=== PATIENT | female | born 2000 | race Hispanic/Latino ===

== ENCOUNTER 2018-09-28 13:38 | Emergency (ER) | payer OTHER ==
[2018-09-28 14:10] VITALS: RESP 18
[2018-09-28] MEDS ORDERED: Sodium Chloride 0.9% 1,000 ML IV STA (15:26)
--- NOTE | 2018-09-28 15:38 | ED PDOC ---
HPI: Headache Time Seen by Provider: 09/28/18 15:03 Chief Complaint (Nursing): Headache Chief Complaint (Provider): Headache History Per: Patient History/Exam Limitations: no limitations Onset/Duration Of Symptoms: Days (x2) Current Symptoms Are (Timing): Still Present Additional Complaint(s): 17 year old female with pmHx of autonomic neuropathy, gastroparesis, and chronic fatigue, presents to ED for an evaluation of headache associated with dizziness, shortness of breath, chest tightness, light sensitivity, generalized weakness, feeling confused, and nausea since yesterday afternoon. Patient is visiting her boyfriend from [place] but denies any recent sick contacts. She reports no similar headaches prior, however, started feeling eye-rolling sensation with numbness to her fingers, toes, and diffuse face which caused her concern. Patient has been taking Reglan and Tylenol with no relief - last Tylenol dose was at 1300 earlier today. Otherwise, she denies LOC, URI symptoms, visual changes, stiff neck, vomiting, diarrhea, leg pain or cramping. Gets weakness daily due to her medical condition. Sees a neurologist and is no several meds. Headache is not worst of her life. PCP: in [place] Past Medical History Reviewed: Historical Data, Nursing Documentation, Vital Signs Vital Signs: Last Vital Signs Temp 98.5 F 09/28/18 14:09 Pulse 57 L 09/28/18 14:09 Resp 18 09/28/18 14:09 BP 126/79 09/28/18 14:09 Pulse Ox 99 09/28/18 14:09 - Medical History PMH: Depression Other PMH: gastroparesis; chronic fatigue; autonomic neuropathy - Surgical History Surgical History: Endoscopy, Tonsillectomy - Family History Family History: States: Unknown Family Hx - Living Arrangements Living Arrangements: With Family - Social History Alcohol: None Drugs: Denies - Immunization History Hx Tetanus Toxoid Vaccination: No Hx Influenza Vaccination: Yes Hx Pneumococcal Vaccination: No - Home Medications Home Medications: Ambulatory Orders Medication Instructions Recorded Oseltamivir Phosphate [Tamiflu] 75 mg PO BID 5 Days capsule 09/28/18 - Allergies Allergies/Adverse Reactions: Allergies Allergy/AdvReac Type Severity Reaction Status Date / Time No Known Allergies Allergy Verified 09/28/18 14:11 Review of Systems ROS Statement: Except As Marked, All Systems Reviewed And Found Negative Constitutional: Positive for: Weakness (general). Negative for: Fever, Chills Eyes: Positive for: Other (light sensitivity). Negative for: Vision Change ENT: Negative for: Nose Discharge, Nose Congestion, Throat Pain Cardiovascular: Positive for: Chest Pain (tightness) Respiratory: Positive for: Shortness of Breath. Negative for: Cough Gastrointestinal: Positive for: Nausea. Negative for: Vomiting, Diarrhea Musculoskeletal: Negative for: Leg Pain Neurological: Positive for: Weakness, Numbness (and paraesthesia of bilateral fingers, toes and face), Confusion, Headache, Dizziness. Negative for: Other (LOC) Physical Exam - Reviewed Nursing Documentation Reviewed: Yes Vital Signs Reviewed: Yes - Physical Exam Appears: Positive for: Non-toxic, No Acute Distress Head Exam: Positive for: ATRAUMATIC, NORMAL INSPECTION, NORMOCEPHALIC Skin: Positive for: Normal Color Eye Exam: Positive for: Normal appearance, EOMI, PERRL. Negative for: Nystagmus ENT: Positive for: Normal ENT Inspection. Negative for: Pharyngeal Erythema Neck: Positive for: Normal, Painless ROM, Supple Cardiovascular/Chest: Positive for: Regular Rate, Rhythm Respiratory: Positive for: Normal Breath Sounds. Negative for: Respiratory Distress Pulses-Radial (L): 2+ Pulses-Radial (R): 2+ Gastrointestinal/Abdominal: Positive for: Normal Exam, Soft. Negative for: Tenderness Back: Positive for: Normal Inspection. Negative for: L CVA Tenderness, R CVA Tenderness Extremity: Positive for: Normal ROM (upper/lower. neurovascularly intact). Negative for: Tenderness, Pedal Edema, Calf Tenderness Neurologic/Psych: Positive for: Alert (x3), meat lugger II-XII (grossly intact), Oriented (x3), Other (speaking full sentences with clear speech). Negative for: Motor/Sensory Deficits, Aphasia - Laboratory Results Result Diagrams: 09/28/18 16:13 09/28/18 16:13 Lab Results: no acute Interpretation Of Abn Labs: flu pos Urine POC: Negative - ECG ECG: Positive for: Interpreted By Me ECG Rhythm: Positive for: Sinus Rhythm. Negative for: ST/T Changes Rate: 51 O2 Sat by Pulse Oximetry: 99 (RA) Pulse Ox Interpretation: Normal - CT Scan/US ct Other Rad Studies (CT/US): Read By Radiologist Other Rad Interpretation: no acute - Progress ED Course And Treament: 1827: Stable. AAOx3. Feels better. Tolerated PO. Rx tamiflu. Ambulated w ith no issues. Medical Decision Making Medical Decision Making: Time: 1503 Initial Plan: * CT head * EKG * Labs * IV fluids * Reglan 10mg IV * Accucheck * Influenza AB * Rapid strep Time: 1549 --Accheck: 79 mg/dL. Scribe Attestation: Documented by Mariel Felix, acting as a scribe for Joe Magallanes MD. Provider Scribe Attestation: All medical record entries made by the Scribe were at my direction and p ersonally dictated by me. I have reviewed the chart and agree that the record accurately reflects my personal performance of the history, physical exam, medical decision making, and the department course for this patient. I have also personally directed, reviewed, and agree with the discharge instructions and disposition. Disposition - Clinical Impression Clinical Impression: Headache, Weakness, Flu - Patient ED Disposition Is Patient to be Admitted: No Counseled Patient/Family Regarding: Studies Performed, Diagnosis, Need For Followup, Rx Given - Disposition Referrals: [facility] [Outside] - 10/01/18 Disposition: Routine/Home Disposition Time: 15:29 Condition: STABLE Additional Instructions: Return if not better in 3 days. Prescriptions: Oseltamivir Phosphate [Tamiflu] 75 mg PO BID 5 Days capsule Instructions: Flu, Headache, Adult, Generalized Weakness (DC) Forms: [employer] ([place]ian), [employer] ED School/Work Excuse
[2018-09-28 16:16] LABS: BASO % 0.3 % (0.0-2.0); EOS # 0.2 K/uL (0.0-0.7); EOS % 1.7 % (0.0-4.0); HEMOGLOBIN 12.4 g/dL (12.0-16.0); LYMPH % 28.4 % (20.0-40.0); MEAN CELL VOLUME 80.5 fl (81.0-99.0); MEAN CORPUSCULAR HGB CONC 32.4 g/dL (33.0-37.0); MEAN PLATELET VOLUME 8.2 fl (7.2-11.7); MONO # 0.8 K/uL (0.0-0.8); MONO % 7.6 % (0.0-10.0); NEUT # 6.6 K/uL (1.8-7.0); NRBC % 0.1 % (0.0-0.0); RBC 4.77 Mil/uL (3.80-5.20); RED CELL DISTRIBUTION WIDTH 15.5 % (11.5-14.5); WHITE BLOOD COUNT 10.7 K/uL (4.8-10.8)
[2018-09-28 16:30] LABS: ALB/GLOB RATIO 1.5 (1.0-2.1); ALT/SGPT 29 U/L (9-52); AST/SGOT 24 U/L (14-36); BLOOD UREA NITROGEN 10 mg/dl (7-17); CALCIUM 9.5 mg/dL (8.4-10.2); GFR NON-AFRICAN AMERICAN > 60
--- NOTE | 2018-09-28 17:04 | CT ---
Date of service: 09/28/2018 PROCEDURE: CT HEAD WITHOUT CONTRAST. HISTORY: Disoriented, headache. COMPARISON: None available. TECHNIQUE: Axial computed tomography images were obtained through the head/brain without intravenous contrast. Supplemental Coronal and Sagittal projections created and reviewed. Radiation dose: Total exam DLP = 821.12 mGy-cm. This CT exam was performed using one or more of the following dose reduction techniques: Automated exposure control, adjustment of the mA and/or kV according to patient size, and/or use of iterative reconstruction technique. FINDINGS: HEMORRHAGE: No intracranial hemorrhage. BRAIN: No mass effect or edema. No atrophy or chronic microvascular ischemic changes. VENTRICLES: Unremarkable. No hydrocephalus. CALVARIUM: Unremarkable. PARANASAL SINUSES: Unremarkable as visualized. No significant inflammatory changes. MASTOID AIR CELLS: Unremarkable as visualized. No inflammatory changes. OTHER FINDINGS: None. IMPRESSION: No acute intracranial abnormalities. No significant findings to account for the clinical presentation.
[2018-09-28 18:57] VITALS: BP 122/72; PULSE 60; TEMP 97.2; O2SAT 98
--- NOTE | 2018-09-29 11:27 | CARD ---
APPROVED REPORT Date of service: 09/28/2018 EKG Measurement Heart [id number] <Conclusion> Unusual P axis, possible ectopic atrial bradycardia Abnormal ECG
== END 2018-09-28 18:50 | disposition home or self-care (01) ==
LOC: H.ER 13:38
DX: R51 Headache (principal); M62.81 Muscle weakness (generalized); J11.1 Influenza due to unidentified influenza virus with other respiratory manifestations; K31.84 Gastroparesis; F32.9 Major depressive disorder, single episode, unspecified
CPT/HCPCS: 70450; 80053; 81025; 82948; 83735; 84100; 84484; 85025; 87070; 87430; 87804; 93005; 96360; 99285; J2765; J7030